=== PATIENT | female | born 1995 ===

== ENCOUNTER 2018-11-25 09:38 | Inpatient (IN) | payer OTHER ==
[~2018-11-25] VITALS: Ht 167.6 cm; Wt 76.7 kg
== END 2018-11-27 13:30 | disposition home or self-care (01) | DRG 832 ==
LOC: OBS/DEL 09:38 → LDR 11-26 10:00 → OBS/DEL 11-26 10:00 → LDR 11-27 13:30
PROVIDERS: ADMIT Obstetrics & Gynecology Obstetrics
PROC: 4A1HXCZ Monitoring of Products of Conception, Cardiac Rate, External Approach (ICD-10-PCS; principal; 2018-11-26)
DX: O47.02 False labor before 37 completed weeks of gestation, second trimester (principal); O23.32 Infections of other parts of urinary tract in pregnancy, second trimester; Z34.02 Encounter for supervision of normal first pregnancy, second trimester

== ENCOUNTER 2019-03-17 06:42 | Inpatient (IN) | payer OTHER ==
[~2019-03-17] VITALS: Ht 167.6 cm; Wt 87.5 kg
[2019-03-17] MEDS ORDERED: PRENATAL TABLE1 EACH PO (08:58)
== END 2019-03-19 17:42 | disposition home or self-care (01) | DRG 807 ==
LOC: LDR 06:42 → OB/GYN 06:42
PROVIDERS: ADMIT Obstetrics & Gynecology Obstetrics
PROC: 10E0XZZ Delivery of Products of Conception, External Approach (ICD-10-PCS; principal; 2019-03-17)
PROC: 4A1HXCZ Monitoring of Products of Conception, Cardiac Rate, External Approach (ICD-10-PCS; 2019-03-17)
PROC: 0W8NXZZ Division of Female Perineum, External Approach (ICD-10-PCS; 2019-03-17)
PROC: 3E033VJ Introduction of Other Hormone into Peripheral Vein, Percutaneous Approach (ICD-10-PCS; 2019-03-17)
DX: O80 Encounter for full-term uncomplicated delivery (principal); Z37.0 Single live birth; Z3A.41 41 weeks gestation of pregnancy

== ENCOUNTER 2020-10-03 10:08 | Day surgery (SDC) | payer OTHER ==
[~2020-10-03 10:08] MED LIST: PRENATAL TABLE1 EACH PO
== END 2020-10-03 19:30 | disposition home or self-care (01) ==
LOC: CIR.AMB 10:08
PROVIDERS: ATTEND Obstetrics & Gynecology Obstetrics
DX: N87.0 Mild cervical dysplasia (principal); Z20.822 Contact with and (suspected) exposure to COVID-19